=== PATIENT | male | born 1960 | race Caucasian/White ===

== ENCOUNTER 2020-06-19 21:48 | Inpatient (IN) | payer OTHER, MEDICAID ==
[~2020-06-19] VITALS: Ht 175.3 cm; Wt 114.8 kg
[2020-06-19 21:49] VITALS: BP 106/48
[2020-06-19 22:13] LABS: HEMATOCRIT 38.9 % (42.0-52.0); HEMOGLOBIN 12.7 gm/dL (14.0-18.0); MCH 30.7 pg (26.0-34.0); MCHC 32.5 g/dL (28.0-37.0); MCV 94.2 fL (80.0-100.0); PLATELET COUNT 83 thou/uL (150-400); RBC 4.13 mil/uL (4.50-6.00); RDW 14.3 % (10.5-14.5)
[2020-06-19 22:23] LABS: CALCIUM 8.1 mg/dL (8.5-10.1); CREATININE 2.6 mg/dL (0.7-1.3); POTASSIUM 4.3 mmol/L (3.5-5.1)
[2020-06-19 22:26] LABS: APTT 49.5 Seconds (24.5-32.8); INR 2.1; PROTIME 21.4 Seconds (9.3-11.4)
[2020-06-19 22:31] LABS: ABSOLUTE NEUTROPHILS 1.4 thou/uL (1.4-8.2); ANISOCYTOSIS 2+; LARGE PLATELETS OCCASIONAL
[2020-06-19 22:32] LABS: MAGNESIUM 1.5 mg/dL (1.8-2.4); TROPONIN-I 0.18 ng/mL (<0.06)
--- NOTE | 2020-06-19 23:51 | NUR ---
THIS CHARGE NURSE HAS CALLED SIX TIMES TO FACILITY REQUESTING RECORDS FOR PATIENT. HISTORY, MEDS, ETC. THIS NURSE HAS SPOKEN TO SIX DIFFERENT STAFF MEMBERS SARABJIT AND ANDREE BEING THE ONES THAT I COULD UNDERSTAND. ANDREE STATES THAT SHE WAS TRYING TO SEND THE PAPERWORK TO THE FAX NUMBER PROVIDED ([phone]) AND THAT THE FAX NUMBER WAS BUSY SO "IT'S MY PROBLEM, NOT THEIRS". A SECOND FAX NUMBER PROVIDED FOR [facility] . HAVE BEEN ATTEMPTING TO OBTAIN INFORMATION SINCE THE PATIENT ARRIVED TO THIS FACILITY 2 HOURS AND 7 MINUTES AGO. STILL NO INFORMATION OBTAINED AT THIS TIME
[2020-06-20] VITALS (8 sets, daily range): BP systolic 87–125; BP diastolic 43–91
--- NOTE | 2020-06-20 02:03 | NUR ---
RECHECKED BP BEFORE LASIX GIVEN
[2020-06-20] MEDS ORDERED: ASA81BEC PO (02:26)
[2020-06-20] MEDS ORDERED: SERTRALINE HCL50 MG PO (02:26)
[2020-06-20] MEDS ORDERED: GABAPENTIN100 MG PO (02:27)
[2020-06-20] MEDS ORDERED: TYLENOL325 M1 PO (02:27)
[2020-06-20] MEDS ORDERED: LISINOPRIL2.5 MG PO (02:28)
[2020-06-20] MEDS ORDERED: POTASSIUM20 PO (02:28)
[2020-06-20] MEDS ORDERED: METFORMIN HCL500 M3 PO (02:29)
[2020-06-20] MEDS ORDERED: MELATONIN3 M1 PO (02:29)
[2020-06-20] MEDS ORDERED: LEVO-T100 MCG PO (02:29)
[2020-06-20] MEDS ORDERED: ZOCOR40 MG PO (02:30)
[2020-06-20] MEDS ORDERED: COREG6.25 MG PO (02:32)
[2020-06-20] MEDS ORDERED: WARFARIN SODIU2.5 MG PO (02:32)
[2020-06-20] MEDS ORDERED: ZINC SULFATE220 MG PO (02:33)
[2020-06-20] MEDS ORDERED: SUPER THERAVIT1 EACH PO (02:33)
[2020-06-20] MEDS ORDERED: AZITHROMYCIN500 MG (02:33)
--- NOTE | 2020-06-20 03:51 | NUR ---
PT ADMITTED FROM ER COVID +, POOR HISTORIAN . O2 5LNC. LUNG BASES DIMINISHED. INSTRUCTED PT ON FALL PRECAUTIONS. ORIENTED PT TO ROOM. BED ALARM ON IV ABX STARTED.
--- NOTE | 2020-06-20 07:56 | EKG ---
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
--- NOTE | 2020-06-20 09:22 | NUR ---
TALKED WITH SISTER ELISA ON THE PHONE.
[2020-06-20 09:35] LABS: HEMATOCRIT 41.3 % (42.0-52.0); HEMOGLOBIN 13.6 gm/dL (14.0-18.0); MCH 30.9 pg (26.0-34.0); MCV 93.6 fL (80.0-100.0); RBC 4.42 mil/uL (4.50-6.00); RDW 14.3 % (10.5-14.5)
[2020-06-20 09:39] LABS: CHOLESTEROL 90 mg/dL (<200); HDL CHOLESTEROL 28 mg/dL (>40); LDL CHOLESTEROL 39 mg/dL (<100); TC:HDL 3.2 Ratio (Not establshd); TRIGLYCERIDE 118 mg/dL (<150); VLDL 24 mg/dL (<40)
[2020-06-20 09:49] LABS: ALBUMIN 3.6 g/dL (3.4-5.0); CALCIUM 8.1 mg/dL (8.5-10.1); CREATININE 2.6 mg/dL (0.7-1.3); POTASSIUM 4.8 mmol/L (3.5-5.1); TOTAL PROTEIN 7.4 g/dL (6.4-8.2); WBC 1.2 thou/uL (4.0-11.0)
--- NOTE | 2020-06-20 13:37 | NUR ---
PT FACETIMED WITH SISTER
--- NOTE | 2020-06-20 14:51 | NUR ---
MEDICAL RECORDS REQUEST SENT TO [facility]
--- NOTE | 2020-06-20 15:24 | NUR ---
PT FACETIMING WITH SISTER FROM [place]
--- NOTE | 2020-06-20 16:33 | NUR ---
INITIAL ASSESSMENT: Received consult for discharge planning. VERONICA reviewed chart and spoke with nursing and attending physician. Pt was admitted from [facility] LTC due to vtach. Pt placed in Enhanced Isolation due to testing positive for COVID-19. Pt had first positive test on 06/15 at the facility. Pt is afebrile and on 5L of O2. Pt is on IV abx/IV steroids. ID consulted. VERONICA placed call to pt's room. No answer. VERONICA spoke with pt's sister, Deisi, via phone. Introduced role of VERONICA. Pt is normally alert/orientated. Pt with hx of CVA. Pt is a LTC resident at [facility]. Pt was transferred to [facility] from [facility] over the summer when [facility] closed. Pt is ambulatory and was not using O2 prior to admission. Pt with hx of ETOH use and was homeless at one time. Plan is for pt to return to [facility] when medically stable. Pt will likely need skilled services. PT/OT to be ordered to evaluate pt. Awaiting ID recommendations. manufacturing planner to fax clinical info to [facility] for review. VERONICA spoke with Maria De Jesus at the facility and provided updated. Confirmed they are able to accept pt back when he is medically stable. VERONICA is following to assist as needed with discharge planning.
[2020-06-21 01:06] LABS: GLYCOHEMOGLOBIN (HGB A1C) 5.9 % (4.8-5.6)
--- NOTE | 2020-06-21 03:32 | NUR ---
DR LARIOS CAME TO SEE PT. ORDERED REMDESIVIR AND CONVALESCENT PLASMA. SPOKE WITH PT AND DPOA SISTER ARGENIS NOVOA AND RECEIVED PERMISSION TO GIVE BOTH. DR LARIOS AWARE OF PTS KIDNEY FUNCTION. PT RESTING QUIETLY. INSTRUCTED THAT WE NEED URINE SAMPLE. BED ALARM ON. SIDERAILS UP X2.
[2020-06-21 05:03] VITALS: BP 129/58
[2020-06-21 06:11] LABS: HEMATOCRIT 37.3 % (42.0-52.0); HEMOGLOBIN 12.4 gm/dL (14.0-18.0); MCHC 33.1 g/dL (28.0-37.0); MCV 93.5 fL (80.0-100.0); PLATELET COUNT 90 thou/uL (150-400); RBC 3.99 mil/uL (4.50-6.00); RDW 13.9 % (10.5-14.5)
[2020-06-21 06:12] LABS: WBC 1.9 thou/uL (4.0-11.0)
[2020-06-21 06:20] LABS: FIBRINOGEN 326.1 mg/dL (210-360); INR 2.9; PROTIME 30.1 Seconds (9.3-11.4)
[2020-06-21 06:32] LABS: ALBUMIN 3.1 g/dL (3.4-5.0); CALCIUM 8.2 mg/dL (8.5-10.1); CREATININE 2.4 mg/dL (0.7-1.3); MAGNESIUM 1.9 mg/dL (1.8-2.4); POTASSIUM 4.3 mmol/L (3.5-5.1); TOTAL BILIRUBIN 0.6 mg/dL (0.2-1.0); TOTAL PROTEIN 7.2 g/dL (6.4-8.2)
[2020-06-21 07:39] VITALS: BP 111/64
[2020-06-21 08:26] LABS: ABSOLUTE NEUTROPHILS 1.4 thou/uL (1.4-8.2)
[2020-06-21 08:27] LABS: ANISOCYTOSIS 1+
[2020-06-21 09:21] LABS: URINE BILIRUBIN NEGATIVE (Negative); URINE BLOOD TRACE (Negative); URINE CLARITY CLEAR; URINE COLOR YELLOW; URINE GLUCOSE-RANDOM* NEGATIVE (Negative); URINE KETONES NEGATIVE (Negative); URINE LEUKOCYTES NEGATIVE (Negative); URINE NITRITE NEGATIVE (Negative); URINE PROTEIN (DIPSTICK) 2+ (Negative); URINE SPECIFIC GRAVITY 1.025 (1.005-1.035); URINE UROBILINOGEN 0.2 E.U./dl (0.2-1.0)
[2020-06-21 09:25] LABS: URINE CREATININE-RANDOM* 102.9 mg/dL; URINE PROTEIN-RANDOM* 106.9 mg/dL (<11.9)
[2020-06-21 09:38] LABS: CASTS None Seen /LPF (None Seen); SQUAMOUS 0-3 Few /LPF (0-3)
[2020-06-21 09:39] LABS: BACTERIA None Seen /HPF (None Seen); CRYSTALS None Seen /LPF (None Seen); URINE WBC 0-5 Rare /HPF (0-5)
[2020-06-21 09:40] LABS: URINE RBC 0-2 Rare /HPF (0-2)
[2020-06-21 10:20] VITALS: BP 136/96; BP 137/61
--- NOTE | 2020-06-21 11:16 | NUR ---
PT CARE ASSUMED AT 0700, PT ALERT AND ORIENTED X4, DENIES ANY PAIN, NAUSEA AND VOMITTING. PT IS ON 3L OF OXYGEN, SOB WITH EXERTIONS,NO SIGNS OF DISTRESS NOTED. PT IS UP WITH 1 ASSIST TO BATHROOM. FALL PRECAUTIONS IN PLACE PT DENIES ANY NEEDS AT THE MOMENT, WILL CONTINUE TO MONITOR. 1025 CONVALUSCENT PLASMA STARTED, IN PT ROMM FOR 15MINS. 1040 VITALS SIGNS RECHECKED, NO REACTION NOTED.
[2020-06-21 11:21] VITALS: BP 147/83
[2020-06-21 15:35] VITALS: BP 137/55
--- NOTE | 2020-06-21 16:08 | NUR ---
SW reviewed chart and spoke with nursing and attending physician. Pt remains in Enhanced Isolation due to COVID-19. Pt is afebrile and on 3L of O2. Pt is on IV abx and IV steroids. Pt had convalescent plasma and is completing course of Remdesivir. Therapy evals requested. Pt is from LTC at [facility] and will likely returning using his skilled benefit. VERONICA is following to assist as needed with discharge planning.
--- NOTE | 2020-06-21 16:22 | NUR ---
FAXED CLINICAL UPDATE TO [facility] SPOKE WITH LISA IN ADM SHE RECEIVED UPDATE. DP TO FOLLOW.
[2020-06-21 20:21] VITALS: BP 113/81
--- NOTE | 2020-06-22 03:09 | NUR ---
ASSUMED CARE OF THE PATIENT AT 1900. PATIENT CONTINUES ON ISOLATION PRECAUTIONS FOR COVID. PATIENT DENIES PAIN AT ASSESSMENT. NON-PRODUCTIVE COUGH NOTED AT LAST ASSESSMENT. SOA WITH AMBULATION OBSERVED.
[2020-06-22 04:14] VITALS: BP 129/65
[2020-06-22 06:27] LABS: INR 3.1; PROTIME 31.4 Seconds (9.3-11.4)
[2020-06-22 07:56] VITALS: BP 107/67
[2020-06-22 09:14] LABS: ALBUMIN 2.9 g/dL (3.4-5.0); CALCIUM 7.6 mg/dL (8.5-10.1); CREATININE 2.7 mg/dL (0.7-1.3); POTASSIUM 3.9 mmol/L (3.5-5.1)
[2020-06-22 09:37] LABS: PHOSPHORUS 4.8 mg/dL (2.5-4.9)
--- NOTE | 2020-06-22 09:49 | HC ---
[facility] [place] [address] CONSULTATION Name: TOMER NOVOA JR Room #: 361-P ADM IN M.R.#: [id number] Admission: 06/20/20 Attend Phys: Cain Bianchi MD Discharge: Date of : 60 Report #: [id number] THIS REPORT FOR: cc: Samson England MD, Shyam MD Al-Mubaslat, Ahmad MD ~ DATE OF SERVICE: 06/21/2020 ENDOCRINE CONSULTATION CONSULTING PHYSICIAN: Dr. Bianchi. REASON FOR CONSULTATION: Hypothyroidism, type 2 diabetes mellitus. HISTORY OF PRESENT ILLNESS: This is a 59-year-old male patient whose medical background is significant for multiple medical issues including type 2 diabetes mellitus, congestive heart failure as well as a history of CVA. Also, the patient is known to have hypothyroidism since his thyroid surgery over 10 years ago. The patient has been on thyroid hormone replacement therapy since then and has been most recently on levothyroxine 125 mcg daily. The patient was not able to define the duration that he has been on this particular dose and whether this was recently titrated. Also, the patient is known to have type 2 diabetes mellitus and is maintained on metformin monotherapy with adequate control. He notes that his blood glucose values are always controlled and hardly ever fluctuate. The patient was admitted yesterday after having been found to be minimally responsive and then wide complex tachycardia with a rapid heart rate above 200. He was cardioverted. Also, he was tested for COVID and proved to be positive. It is worth noting that he has been admitted to [facility] and remained there for about 2 months recently with multiple extensive medical issues. REVIEW OF SYSTEMS: CONSTITUTIONAL: Fatigue, tiredness, but not fever, chills or body weight changes. HEENT: Negative for sore throat, sinus pain or ear drainage. PULMONARY: Shortness of breath, cough, but not hemoptysis. CARDIAC: Palpitations, dizziness, lightheadedness, but not chest pain. GASTROINTESTINAL: Occasional issues with abdominal discomfort, nausea, but not vomiting. NEUROLOGY: Intermittent issues with urinary retention. NEUROLOGY: Baseline issues with diabetic neuropathy, occasional [facility] [address] [place] [address] CONSULTATION Name: TOMER NOVOA Room #: 361-P ADM IN M.R.#: [id number] Admission: 06/20/20 Attend Phys: Cain Bianchi MD Discharge: Date of : 60 Report #: [id number] lightheadedness, but not loss of consciousness or seizure activity. Otherwise, the review of systems noncontributory other than those mentioned in HPI. PAST MEDICAL HISTORY: 1. Type 2 diabetes mellitus. 2. Congestive heart failure. 3. History of CVA. 4. Peripheral neuropathy. 5. Hypothyroidism, status post thyroidectomy. 6. Coronary artery disease. 7. Hyperlipidemia. 8. Hypertension. 9. Depression. 10. Obstructive sleep apnea, possible COPD. OUTPATIENT MEDICATIONS: Include aspirin 81 mg daily, sertraline 75 mg daily, gabapentin 100 mg b.i.d., Tylenol 325 mg q. 4 hours p.r.n., KCl 60 mEq t.i.d., lisinopril 2.5 mg daily, levothyroxine 125 mcg daily, melatonin at bedtime p.r.n., metformin 500 mg b.i.d., simvastatin 80 mg at bedtime, warfarin 2.5 mg at bedtime, carvedilol 6.25 mg b.i.d., zinc daily, multivitamins daily. ALLERGIES: No known drug allergies. FAMILY HISTORY: Noncontributory. SOCIAL HISTORY: He denies use of tobacco, alcohol or illicit drugs. PHYSICAL EXAMINATION: GENERAL: A male patient, who appears uncomfortable as he was being straight catheterized when I saw him. VITAL SIGNS: Blood pressure 111/64 mmHg, heart rate is 78 beats per minute, respiration 18 per minute, and temperature 36.6 degrees Celsius. CONSTITUTIONAL: He is lying in bed, appears uncomfortable, but not in distress. HEENT: Anicteric sclerae. Intact extraocular motions. NECK: Supple. Thyroid gland is not palpated. A well-healed thyroidectomy scar is seen at the base of the neck. CHEST: Noted for moderate air entry. Coarse breath sounds, scattered rales. HEART: Regular rate and rhythm with systolic ejection murmur. ABDOMEN: Soft, lax. No guarding. Active bowel sounds. EXTREMITIES: Lower extremity exam edema bilaterally with deep stasis dermatitis over both legs. NEUROLOGIC: Awake, alert and oriented to time, place and person. He could not cooperate fully with the exam given that he was undergoing straight cath [address] [address] CONSULTATION Name: TOMER NOVOA Room #: 361-P [facility] IN M.R.#: [id number] Admission: 06/20/20 Attend Phys: Cain Bianchi MD Discharge: Date of : 60 Report #: [id number]. PSYCHIATRIC: Appeared uncomfortable, answered without interest in deep conversation, but with normal thought content. LABORATORY DATA: Blood glucose values since arrival have hovered between 249 and 352 mg/dL. Sodium 133, potassium 4.3, chloride 101, CO2 of 20, anion gap 12, BUN 55, creatinine 2.4, AST 52, total bilirubin 0.6, calcium 8.2, magnesium 1.9, alkaline phosphatase 53, ALT 47, total protein 7.2, albumin 3.1, EGFR 28. Troponin 0.19. Total cholesterol 90, triglycerides 118, HDL 28, LDL 39. BNP 5680. Free T4 of 1.4. INR 2.9. White blood count 1.9, hemoglobin 12.4, hematocrit 37.3, and platelets 90. TSH 0.078. Hemoglobin A1c 5.9%. ASSESSMENT AND PLAN: 1. Hypothyroidism. As noted above, the patient has longstanding hypothyroidism since his thyroidectomy surgery over 10 years ago. He has been on levothyroxine replacement since then. His thyroid function studies point d out to within normal free T4 levels giving the appearance of a reasonable dose selection on the current regimen. However, his TSH is significantly suppressed, which could certainly be influenced by the combination of his acute illness as well as the use of high-dose steroids. However, given his presentation with a tachyarrhythmia and instability at that time due to that cause, I would rather be on the safe side of tapering down his levothyroxine to 100 mcg daily. Without a doubt, the patient will need thyroid function study followup in 6-8 weeks to assess his needs under more clinical stability. 2. Type 2 diabetes mellitus. The patient reports adequate control on metformin monotherapy, which is supported by his hemoglobin A1c of 6.0%. However, the use of metformin was precluded at this point in time by significant renal insufficiency. Moreover, his blood glucose values have risen significantly likely due to the usage of high dose steroid therapy as well as acute illness. Given this outlook, I will move on to utilizing Lantus insulin 8 units daily and coverage for meals with 6 units with meals in addition to Humalog supplemental scale low intensity. Blood glucose monitoring will continue before meals and at bedtime and further therapeutic adjustments will be made accordingly. 3. Hypertension. The patient's level of blood pressure control is adequate. He is to continue with the same. 4. Hyperlipidemia. The patient is maintained on simvastatin therapy, this is to be resumed when he is more clinically stable. 5. Pneumonia. The patient is COVID-19 positive. He is currently receiving therapy with remdesivir, high dose steroid therapy as well as zinc and Zosyn. The pulmonary team is following closely. [address] [address] CONSULTATION Name: TOMRE NOVOA Room #: 361-P ADM IN M.R.#: [id number] Admission: 06/20/20 Attend Phys: Cain Bianchi MD Discharge: Date of : 60 Report #: [id number] I certainly appreciate this consultation by Dr. Bianchi. <ELECTRONICALLY SIGNED> By: Aggie Cohn MD 06/22/20 0949 0935 1111 Aggie Cohn MD /fracisco
[2020-06-22 11:32] VITALS: BP 98/63
[2020-06-22 15:29] VITALS: BP 103/52
--- NOTE | 2020-06-22 15:36 | NUR ---
VERONICA reviewed chart. Pt remains in Enhanced Isolation due to COVID-19. Pt is afebrile and on 4L of O2. Pt is on IV abx and IV steroids. Pt completing course of Remdesivir. PT/OT ordered to evaluate pt. Pt's sister states that he was currently using his skilled benefit prior to admission. VERONICA contacted [facility] liaison, who confirms pt was skilled and they will plan to skill pt when he returns. Clinical/therapy updates to be faxed to the facility tomorrow, when therapy evals are available. Plan is for pt to return to [facility] SNF when medically stable. VERONICA is following to assist as needed with discharge planning.
--- NOTE | 2020-06-22 16:20 | NUR ---
PT CARE ASSUMED AT 0700, PT ALERT AND ORIENTED X4, DENIES NAUSEA AND VOMITTING. ON 3L OF OXYGEN, NO SOB OR DISTRESS NOTED. MCKINNEY CATHETER IN PLACE. FALL PRECAUTIONS IN PLACE. PROGRESSING TOWARDS CARE, WILL CONTINUE TO MONITOR. [address] 427, DR. POPE PAGED AND MADE AWARE, NO NEW ORDERS GIVEN.
[2020-06-22 20:38] VITALS: BP 110/45
[2020-06-23 05:00] VITALS: BP 116/71
--- NOTE | 2020-06-23 05:54 | NUR ---
CONTINUES ON 3 LITERS N/C, COMFORTABLE WITH HIS BREATHING. RESTING IN BED TONIGHT. CALLS APPROPRIATELY FOR ASSIST. NO COMPLAINTS, HE IS VERY QUIET, AND TAKES TIMES TO RESPOND TO QUESTIONS. CAREPLAN REVIEWED.
[2020-06-23 06:16] LABS: FIBRINOGEN 275.6 mg/dL (210-360); HEMATOCRIT 34.8 % (42.0-52.0); HEMOGLOBIN 11.6 gm/dL (14.0-18.0); INR 3.7; MCH 31.1 pg (26.0-34.0); MCHC 33.4 g/dL (28.0-37.0); MCV 93.1 fL (80.0-100.0); PLATELET COUNT 117 thou/uL (150-400); PROTIME 38.3 Seconds (9.3-11.4); RBC 3.74 mil/uL (4.50-6.00); RDW 14.4 % (10.5-14.5); WBC 1.8 thou/uL (4.0-11.0)
[2020-06-23 06:42] LABS: ALBUMIN 2.9 g/dL (3.4-5.0); CALCIUM 7.3 mg/dL (8.5-10.1); CREATININE 2.5 mg/dL (0.7-1.3); POTASSIUM 3.7 mmol/L (3.5-5.1); TOTAL BILIRUBIN 0.7 mg/dL (0.2-1.0); TOTAL PROTEIN 6.4 g/dL (6.4-8.2)
[2020-06-23 07:44] VITALS: BP 106/73
[2020-06-23 08:20] LABS: ABSOLUTE NEUTROPHILS 1.6 thou/uL (1.4-8.2)
[2020-06-23 08:21] LABS: ANISOCYTOSIS 1+; OVALOCYTES FEW
[2020-06-23 11:32] VITALS: BP 117/55
[2020-06-23 15:54] VITALS: BP 133/115
--- NOTE | 2020-06-23 16:31 | NUR ---
PT CARE ASSUMED AT 0700, PT ALERT AND ORIENTED X4, DENIES CHEST PAIN, ANSUEA AND VOMITTING. PT O2 DECREASED DOWN TO 2L OF OXYGEN, NO SIGNS OF DISTRESS NOTED. PT IS UP IN CHAIR, DENIES ANY NEEDS AT THE MOMENT. FALL PRECAUTIONS IN PLACE. WILL CONTINUE TO MONITOR.
[2020-06-23 19:02] VITALS: BP 107/86
--- NOTE | 2020-06-24 04:38 | NUR ---
CONTINUES ON 3 LITERS O2. HE IS COMFORTABLE WITH HIS BREATHING. DENIES PAIN. ABRILE, CONTINUES ON IV ANTIBIOTICS. CAREPLAN REVIEWED. NO CONCERNS VOICED.
[2020-06-24 04:54] VITALS: BP 102/39
[2020-06-24 06:25] LABS: ABSOLUTE NEUTROPHILS 2.6 thou/uL (1.4-8.2); BASOPHILS 0.2 % (0.0-2.0); EOSINOPHILS 0.1 % (0.0-3.0); HEMATOCRIT 35.2 % (42.0-52.0); HEMOGLOBIN 11.6 gm/dL (14.0-18.0); LYMPHOCYTES 7.3 % (24.0-44.0); MCV 93.9 fL (80.0-100.0); MONOCYTES 7.6 % (1.0-8.0); PLATELET COUNT 149 thou/uL (150-400); POLYS 84.8 % (36.0-66.0); RBC 3.75 mil/uL (4.50-6.00); RDW 14.1 % (10.5-14.5)
[2020-06-24 06:44] LABS: FIBRINOGEN 241.1 mg/dL (210-360); PROTIME 41.2 Seconds (9.3-11.4)
[2020-06-24 06:46] LABS: ALBUMIN 2.5 g/dL (3.4-5.0); CALCIUM 7.4 mg/dL (8.5-10.1); CREATININE 2.6 mg/dL (0.7-1.3); POTASSIUM 3.6 mmol/L (3.5-5.1); TOTAL BILIRUBIN 0.8 mg/dL (0.2-1.0); TOTAL PROTEIN 6.2 g/dL (6.4-8.2)
[2020-06-24 07:31] VITALS: BP 99/55
--- NOTE | 2020-06-24 08:12 | HC ---
[facility] [place] [address] CONSULTATION Name: TOMER NOVOA JR Room #: 361-P ADM IN M.R.#: [id number] Admission: 06/20/20 Attend Phys: Cain Bianchi MD Discharge: Date of : 60 Report #: [id number] THIS REPORT FOR: cc: Samson England MD, Shyam MD Al-Jerrod,Rigo Pérez MD ~ DATE OF SERVICE: 06/20/2020 REASON FOR CONSULTATION: Elevated creatinine. REASON FOR PRESENTATION: Altered mental status with wide complex tachycardia. HISTORY OF PRESENT ILLNESS: A 59-year-old with extensive past medical history including diabetes mellitus, history of CVA, heart failure with unknown ejection fraction, hypothyroidism, mechanical heart valve replacement. It looks like that the patient had been at [facility] for an extensive period of time. The patient recently tested positive for COVID-19 06/15 at his senior care facility. Creatinine value was 2.6 on arrival, mandating a Nephrology consultation. The patient has very vague recollection of what is going on with his kidneys. In fact, he denies any prior knowledge of kidney problems. He has long-standing diabetes mellitus and hypertension, putting him at risk of having chronic kidney disease. He is not aware of the level of his kidney disease. I was consulted to manage his chronic kidney disease. It is listed that the patient is taking lisinopril, carvedilol as an outpatient. He is currently being treated with azithromycin for his COVID-19. He denies nonsteroidal anti-inflammatory medication usage. His blood pressure was marginally on the low side when he presented. His chest x-ray showed bilateral pulmonary infiltrate. He is now under isolation and is followed by hospitalist, LISA. PAST MEDICAL HISTORY: Extensive and includes the followin. Heart failure with unknown ejection fraction. 2. Diabetes mellitus. 3. Hypertension. 4. Recent COVID-19 positive. 5. Mechanical valve replacement. 6. Hypothyroidism. 7. Coronary artery disease. 8. Post-thyroidectomy. 9. Post-CABG. SOCIAL HISTORY: Former smoker. Currently resides in a nursing facility. ALLERGIES: None. [facility] [address] [place] [address] CONSULTATION Name: TOMER NOVOA Room #: 361-P [facility] IN [facility]#: [id number] Admission: 06/20/20 Attend Phys: Cain Bianchi MD Discharge: Date of : 60 Report #: [id number] MEDICATIONS: 1. Warfarin. 2. Carvedilol. 3. Lisinopril. 4. Aspirin. 5. Gabapentin. 6. Potassium. 7. Azithromycin. 8. Simvastatin. REVIEW OF SYSTEMS: GENERAL: Significant for fever and chills. CARDIOVASCULAR: Significant for shortness of breath and chest pain. PULMONARY: Significant for shortness of breath. GASTROINTESTINAL: No nausea or vomiting. GENITOURINARY: No frequency, no urgency. MUSCULOSKELETAL: Occasional arthralgias and back pain. NEUROLOGICAL: No headache, no dizziness. FAMILY HISTORY: Hypertension. PHYSICAL EXAMINATION: VITAL SIGNS: Temperature 36.3, pulse rate 96, respiratory rate 20, blood pressure 125/73, pulse ox is 93. HEAD AND NECK: No jugular venous distention. CHEST: Decreased air entry bilaterally. CARDIOVASCULAR: No rub. ABDOMEN: Soft, nontender. LOWER EXTREMITIES: +1 edema. LABORATORY DATA: White blood cell count is very low at 2. Sodium is 133, potassium is 4.3, BUN is 35, creatinine is 2.6. Magnesium is 1.5. Chest x-ray reviewed and this is consistent with bilateral pulmonary infiltrate. IMPRESSION AND PLAN: 1. Elevated creatinine with unknown baseline. 2. COVID-19. The patient is positive. 3. History of heart failure. 4. Diabetes mellitus. 5. Hypertension. 6. Unknown baseline creatinine, which complicates the patient management. I will start with the appropriate workup for his acute kidney injury. For now, keep him off his blood pressure medication given the low blood pressure. [address] [address] CONSULTATION Name: TOMER NOVOA JR Room #: 361-P [facility] IN [facility].#: [id number] Admission: 06/20/20 Attend Phys: Cain Bianchi MD Discharge: Date of : 60 Report #: [id number] 7. Continue to address his other comorbid conditions including his heart failure and his diabetes mellitus. 8. Infectious disease consultation. 9. No further diuresis. 10. Cardiac echo. 11. Obtain his [facility] medical records. 12. We will continue to follow. <ELECTRONICALLY SIGNED> By: Rigo Abraham MD 06/24/20 0812 08 1412 Rigo Abraham MD /nt
[2020-06-24 11:27] VITALS: BP 102/62
--- NOTE | 2020-06-24 13:56 | NUR ---
VERONICA reviewed chart and spoke with nursing and attending physician. Pt remains in Enhanced Isolation due to COVID-19. Pt is afebrile and on 2L of O2. Pt is on IV abx and will complete course of Remdesivir today. Pt may be ready to discharge back to [facility] over the weekend. VERONICA spoke with Maria De Jesus at [facility], who confirms they are able to accept pt back if he is ready over the weekend. Staff to contact the facility and ask for the [facility], to coordinate pt's discharge. VERONICA placed call to pt's room. No answer. VERONICA updated pt's sister, Deisi. Deisi is agreeable with plan and would like to be notified when pt is discharged. Finalized discharge orders/summary will need to faxed to the facility when available. Will need chart copied. VERONICA is following and is available to assist should needs arise. [facility]--
--- NOTE | 2020-06-24 14:32 | NUR ---
UP AND ABOUT IN ROOM WITH WALKER. HE DENIES PAIN. HANK CATH D/C. POSSIBLE DISHCARGE TOMORROW. WILL CONT WITH PLAN OF CARE.
[2020-06-24 16:02] VITALS: BP 100/42
[2020-06-24 19:31] VITALS: BP 144/70
[2020-06-25 04:03] VITALS: BP 99/50
--- NOTE | 2020-06-25 04:18 | NUR ---
ASSESSMENTS CHARTED, MEDS CHARTED GIVEN. RESTING IN BED DURING SHIFT. ON OXYGEN VIA NASAL CANULA DURING SHIFT. ACCU CHECK ACHS COVERED AT HS WITH 10 UNITS. UP WITH STANDBY ASSIST. DENIED PAIN. PLAN IS TO DISCHARGE IN THE AM. FALL PRECAUTIONS IN PLACE.
[2020-06-25 06:00] LABS: INR 3.8; PROTIME 38.7 Seconds (9.3-11.4)
[2020-06-25 08:15] VITALS: BP 132/119
[2020-06-25 11:54] VITALS: BP 114/76
[2020-06-25 15:54] VITALS: BP 84/42
--- NOTE | 2020-06-25 19:31 | NUR ---
PATIENT NOW SLEEPING AND RESPIRATIONS ARE EVEN NON LABORED. RESPIRATIONS ARE NON LABORED. CONT ON OXYGEN AT 2L. BLOOD GLUCOSE WAS LOW THIS PM AND NOTIFIED. SEE MAR. PATIENT EATING MUCH LESS TODAY THAN HE DID YESTERDAY. MONITOR FOR TREND.
[2020-06-25 21:10] VITALS: BP 100/74
[2020-06-26 04:16] VITALS: BP 110/80
--- NOTE | 2020-06-26 04:58 | NUR ---
PT STANDING AT BEDSIDE TO VOID VIA URINAL. DENIES PAIN. RESTING COMFORTABLY. NO NEEDS VOICED. CALL LIGHT WITHIN REACH. FREQUENT OBSERVATION.
[2020-06-26 05:50] LABS: HEMOGLOBIN 12.9 gm/dL (14.0-18.0); MCH 30.8 pg (26.0-34.0); MCV 93.4 fL (80.0-100.0); RBC 4.18 mil/uL (4.50-6.00); RDW 14.5 % (10.5-14.5); WBC 3.2 thou/uL (4.0-11.0)
[2020-06-26 06:01] LABS: INR 2.7; PROTIME 28.2 Seconds (9.3-11.4)
[2020-06-26 06:09] LABS: CALCIUM 7.1 mg/dL (8.5-10.1); CREATININE 2.2 mg/dL (0.7-1.3); POTASSIUM 3.6 mmol/L (3.5-5.1)
[2020-06-26 07:35] VITALS: BP 108/76
[2020-06-26 11:19] VITALS: BP 102/65
[2020-06-26 15:19] VITALS: BP 109/72
--- NOTE | 2020-06-26 19:13 | NUR ---
PATIENT NOW SLEEPING AND RESPIRATIONS ARE EVEN NON LABORD. HE KEEPS TAKING OFF HIS OXYGEN REDIRECTED MANY TIMES AND HE IS NOT COMPLAINT. SPOKE WITH GRACIE FROM [facility] AND THEY ARE NOT ABLE TO DO A WEEKEND DISCHARGE BUT WILL ACCEPT PATIENT TOMORROW. AND CM NOTIFIED. WILL CONT WITH PLAN OF CARE.
[2020-06-26 19:39] VITALS: BP 115/67
[2020-06-27 04:19] LABS: INR 2.3; PROTIME 23.4 Seconds (9.3-11.4)
[2020-06-27 04:20] VITALS: BP 113/74
--- NOTE | 2020-06-27 05:31 | NUR ---
Patient making progress towards outcome goals. Oxygenation optimal on room air. Gets tachy up to 160's with activity, rates drops back to 90's to low 100's after a few minutes. Patient asymptomatic. Up adlib to bathroom, gait slow but steady. % beat run vtach while having a bowel movement, asymptomatic. Discharge plans to alf. Vital signs stable. Afebrile. Rhythm chronic Afib with BBB and occasional PVC's. Denies chest pain. Mild shortness of air with activity. Sat 93-94 % on roomair.
[2020-06-27 09:10] VITALS: BP 122/66
[2020-06-27] MEDS ORDERED: AUGMENTIN 500-1 EACH PO (10:06)
[2020-06-27] MEDS ORDERED: FLOMAX0.4 MG PO (10:07)
[2020-06-27] MEDS ORDERED: TORSEMIDE20 MG PO (10:08)
[2020-06-27] MEDS ORDERED: LANTUS100 UNIT/M SUBQ (10:09)
[2020-06-27] MEDS ORDERED: POTASSIUM20 PO (10:09)
[2020-06-27] MEDS ORDERED: NOVOLOG100 UNIT/1 SUBQ (10:09)
[2020-06-27] MEDS ORDERED: VITAMINC500 PO (10:10)
[2020-06-27] MEDS ORDERED: VITAMIN D325 MC1 PO (10:10)
[2020-06-27] MEDS ORDERED: VITAMIN B-1100 M2 PO (10:11)
--- NOTE | 2020-06-27 11:05 | NUR ---
PT CARE ASSUMED AT 0700, PT ALERT AND ORIENTED X4, DENIES ANY PAIN, NAUSEA AND VOMITTING. PT IS ON ROOM AIR, SOB WITH EXERTION. UP IN THE CHAIR. ASSESSMENT AND VITAL SIGNS STABLE. PT HAS A DISCHARGE ORDER, WAITING TO HEAR FROM CASE MGT ABOUT TRANSPORTATION. PT UP AD RAJAT TO THE BATHROOM. DENIES ANY NEEDS AT THE MOMENT. WILL CONTINUE TO MONITOR.
[2020-06-27 12:00] VITALS: BP 106/74
--- NOTE | 2020-06-27 14:01 | NUR ---
DISCHARGE NOTE: VERONICA reviewed chart and spoke with nursing and attending physician. Pt remains in Enhanced Isolation due to COVID-19. Pt is afebrile and not requiring O2. Pt is medically stable to discharge back to [facility] today. VERONICA faxed discharge orders/summary to the facility for review. VERONICA spoke with Day in admissions to coordinate discharge. Wheelchair van transportation to be scheduled for [id number] per facility's arrangements. VERONICA notified pt's sister, Deisi, about transportation time and discharge plan. Deisi is aware and in agreement with plan. Chart copy requested. Nursing provided with number to call report. No additional SW needs identified at this time, but is available to assist should needs arise.
--- NOTE | 2020-06-27 15:47 | NUR ---
PT IV TAKEN OUT, TELEMETRY DISCONTINUE. PT [facility] PACKED AND SENT WITH PT VIA TRANSPORT. CALLED [facility] TIMES TO GIVE REPORT, NO ANSWER. WILL TRY AGAIN
--- NOTE | 2020-06-27 15:56 | NUR ---
REPORT GIVEN TO NURSE BUNCH AT [facility].
== END 2020-06-27 15:35 | DRG 177 ==
LOC: ER 21:48 → EROBS 06-20 00:49 → 3W 06-20 00:49
PROVIDERS: Emergency Medicine; Hospitalist; Nurse Practitioner Family; Specialist; ADMIT Internal Medicine; ATTEND Internal Medicine
PROC: XW033E5 Introduction of Remdesivir Anti-infective into Peripheral Vein, Percutaneous Approach, New Technology Group 5 (ICD-10-PCS; principal; 2020-06-20)
PROC: XW13325 Transfusion of Convalescent Plasma (Nonautologous) into Peripheral Vein, Percutaneous Approach, New Technology Group 5 (ICD-10-PCS; 2020-06-22)
DX: U07.1 COVID-19 (principal); J96.01 Acute respiratory failure with hypoxia; J12.89 Other viral pneumonia; I50.43 Acute on chronic combined systolic (congestive) and diastolic (congestive) heart failure; I47.2 Ventricular tachycardia; N17.9 Acute kidney failure, unspecified; I47.1 Supraventricular tachycardia; I42.9 Cardiomyopathy, unspecified; I13.0 Hypertensive heart and chronic kidney disease with heart failure and stage 1 through stage 4 chronic kidney disease, or unspecified chronic kidney disease; E03.9 Hypothyroidism, unspecified; E11.42 Type 2 diabetes mellitus with diabetic polyneuropathy; G47.00 Insomnia, unspecified; F32.9 Major depressive disorder, single episode, unspecified; I25.10 Atherosclerotic heart disease of native coronary artery without angina pectoris; E78.5 Hyperlipidemia, unspecified; E83.42 Hypomagnesemia; E78.00 Pure hypercholesterolemia, unspecified; Z66 Do not resuscitate; Z87.891 Personal history of nicotine dependence; Z95.1 Presence of aortocoronary bypass graft; Z79.01 Long term (current) use of anticoagulants; Z79.82 Long term (current) use of aspirin; Z79.899 Other long term (current) drug therapy; Z86.73 Personal history of transient ischemic attack (TIA), and cerebral infarction without residual deficits
CPT/HCPCS: 10879